=== PATIENT | female | born 1965 | race African-American/Black ===

== ENCOUNTER 2016-07-20 15:31 | Emergency (ER) | payer MEDICAID, OTHER ==
[~2016-07-20] VITALS: Ht 162.6 cm; Wt 117.9 kg
[~2016-07-20 15:31] MED LIST: COREG3.125 MG ORAL; FUROSEMIDE40 MG/4 ML IV; HEPARIN1000 UNIT/ SUBQ; IPRAT-ALBUT 0.5-3 ML IH; LISINOPRIL5 MG ORAL; MORPHINE 11 MG/2 ML IV; NITROGLYCERIN0.4 MG SL; PROTONIX IV40 MG IV; RESTORIL15 MG ORAL; TORSEMIDE10 MG IV; TYLENOL650 MG/20. ORAL; ZOFRAN 4 MG4 MG/2 ML IV
[2016-07-20 15:59] VITALS: BP 154/107
[2016-07-20] MEDS ORDERED: PredniSONE 20mg tab ORAL ONE (16:00)
[2016-07-20] MEDS ORDERED: NORVASC10 MG ORAL (16:25)
[2016-07-20] MEDS ORDERED: PREDNISONE20 MG ORAL (16:25)
--- NOTE | 2016-07-20 16:35 | Emergency Room Report ---
History of Present Illness General Chief Complaint: Allergic Reaction Source: Patient, Medical Record Present Illness HPI 50 YOF presents with lower lip swelling since yesterday. Denies throat tightness, SOB, chest tightness, wheezing. Denies fever/chills, rash. Took 2x benadryl yesterday and again this morning with significant improvement in swelling (showed me picture on her phone). Has been taking Lisinopril 10mg for "years and years." Has known CHF with reduced EF 45% per EMR. Allergies: Coded Allergies: PENICILLINS (Unverified Allergy, Unknown, 06/20/15) Uncoded Allergies: PENICILLIN (Allergy, Unknown, 06/20/15) Patient History Past Medical History: HTN Past Surgical History: none Pertinent Family History: none Social History: Denies: alcohol use, drug use, smoking Last Menstrual Period: n/a Now: No Immunizations: UTD Reviewed Nursing Documentation: PMH: Agreed, PSxH: Agreed Nursing Documentation-PMH Past Medical History: No History, Except For Hx Hypertension: Yes Hx Diabetes: Yes Hx Cancer: No Hx Gastrointestinal Problems: No - Gastric bypass Review of Systems All Other Systems: negative except mentioned in HPI Physical Exam Vital Signs Date Time Temp Pulse Resp B/P Pulse Ox O2 Delivery O2 Flow Rate FiO2 07/20/16 15:46 98.1 86 16 154/107 100 Room Air Sp02 EP Interpretation: reviewed, abnormal General Appearance: normal inspection, well appearing, no apparent distress, alert, GCS 15, non-toxic Head: normocephalic, atraumatic Eyes: bilateral eye EOMI, bilateral eye PERRL ENT: normal ENT inspection, hearing grossly normal, normal pharynx, normal voice, TMs + canals normal, uvula midline, moist mucus membranes, other - Lower lip diffuse swelling. Neck: normal inspection, full range of motion, supple, no bony tend, no carotid bruits, other - No wheezing Respiratory: normal inspection, lungs clear, normal breath sounds, no respiratory distress, no retraction, no wheezing Cardiovascular #1: regular rate, rhythm, no edema Gastrointestinal: normal inspection, normal bowel sounds, non tender, soft, no guarding, no hernia Genitourinary: no CVA tenderness Musculoskeletal: normal inspection, back normal, normal range of motion, Gabriella' s Sign negative Neurologic: normal inspection, alert, oriented x3, responsive, cook morning III-XII nml as tested, motor strength/tone normal, speech normal Psychiatric: normal inspection, judgement/insight normal, mood/affect normal Skin: normal inspection, normal color, no rash Medical Decision Making Diagnostic Impression: Primary Impression: Angioedema Qualified Codes: T78.3XXA - Angioneurotic edema, initial encounter ER Course 50 YO F with lower lip angioedema. VS notable for hypertension Airway patent No other concerning signs for systemic involvement Patient hasnt taken BP med in 2 days Likely related to Lisinopril Progressively improving PO Prednisone given in ED and Rx for 3 days Advised to STOP Lisinopril, never take ACEi or ARB in future, get med alert tag Patient does not have PMD, goes to clinic. Patient obviously needs HTN med given history. Has taken Norvasc in the past so will give dose here and restart Norvasc. Advised clinic followup DC home Last Vital Signs Date Time Temp Pulse Resp B/P Pulse Ox O2 Delivery O2 Flow Rate FiO2 07/20/16 15:59 98.1 84 16 154/107 100 Room Air Status: improved Disposition: HOME, SELF-CARE Condition: Improved Scripts Prednisone* (PREDNISONE*) 20 Mg Tablet 40 MG ORAL DAILY for 3 Days, #3 TAB Prov: GUSTAVO RODAS M.D. 07/20/16 Amlodipine Besylate (Norvasc) 10 Mg Tablet 10 MG ORAL DAILY for 30 Days, #30 TAB Prov: GUSTAVO RODAS M.D. 07/20/16 Patient Instructions: Angioedema, [id number] Additional Instructions: - STOP taking Lisinopril. You should never take this medication or other RIZWAN inhibitor medications for blood pressure in the future. - Swelling should resolve in next 24-72 hours - You can start taking Norvasc as a substitute for Lisinopril but you need to followup with a primary care doctor or a clinic to see if this is the best option for you - Take prednisone daily in the morning, next 3 days - Return immediately to nearest ER for worsening lip swelling, difficulty breathing or swallowing or throat tightness GUSTAVO RODAS M.D. Jul 20, 2016 16:35
== END 2016-07-20 16:35 | disposition home or self-care (01) ==
LOC: EMR 16:11
DX: T78.3XXA Angioneurotic edema, initial encounter (principal); I10 Essential (primary) hypertension; E11.9 Type 2 diabetes mellitus without complications
CPT/HCPCS: 99284